=== PATIENT | female | born 1930 | race Caucasian/White ===

== ENCOUNTER 2017-06-20 08:27 | Emergency (ER) | payer MEDICARE, OTHER ==
[2017-06-20 08:47] VITALS: BP 210/73
--- NOTE | 2017-06-20 09:11 | EDM.PDOC ---
ED HPI GENERAL MEDICAL PROBLEM - General Chief Complaint: Cardiovascular Problem Stated Complaint: MEDICAL [facility] Time Seen by Provider: 06/20/17 08:57 Source of Information: Reports: Patient, RN Notes Reviewed History Limitations: Reports: No Limitations - History of Present Illness INITIAL COMMENTS - FREE TEXT/NARRATIVE: 87-year-old female presents emergency department day complaint of elevated blood pressure, she states she awoke this morning did not feel right checked her blood pressure and was elevated around 225 she felt dizzy and unsteady on her feet called the nurses line who recommended immediate transport to the emergency department, where she was brought in by EMS services. She states she did not take her blood pressure medications this morning she only uses metoprolol tartrate once a day was on hydrochlorothiazide but was taken off that medication 2 months ago for hallucinations - Related Data Allergies Allergy/AdvReac Type Severity Reaction Status Date / Time No Known Allergies Allergy Verified 06/20/17 08:38 Home Meds: Home Meds Levothyroxine 50 mcg PO ACBRK 08/13/13 [History] Lovastatin [Lovastatin] 20 mg PO DAILY 08/13/13 [History] Meclizine [Antivert] 12.5 mg PO BID 08/13/13 [History] Omeprazole [Omeprazole] 20 mg PO DAILY 08/13/13 [History] prednisoLONE Acetate [Prednisolone Acetate] 1 drop EYERT DAILY 08/13/13 [History ] Aspirin/Calcium Carbonate/Mag [Aspirin Buffered 325 mg Tab] 325 mg PO DAILY [History] Calcium Carbonate/Vitamin D3 [Calcium 600 + Vit D 200] 1 tab PO DAILY 06/06/15 [ History] Lutein 6 mg PO DAILY 06/06/15 [History] Metoprolol Tartrate [Lopressor] 25 mg PO DAILY 06/06/15 [History] Naproxen Sodium 1 tab PO BID PRN 06/06/15 [History] Nitroglycerin [Nitrostat] 0.4 mg PO ASDIRECTED PRN 06/06/15 [History] Psyllium [Metamucil] 1 cap PO DAILY 06/06/15 [History] Vitamin E 400 unit PO DAILY 06/06/15 [History] Niacin 250 mg PO DAILY 05/21/16 [History] Past Medical History HEENT History: Reports: Cataract, Glaucoma, Impaired Vision Cardiovascular History: Reports: High Cholesterol, Hypertension Other Cardiovascular History: "heart palpitations" Gastrointestinal History: Reports: Chronic Constipation, GERD, Hemorrhoids 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: Musculoskeletal History: Reports: Gout, Osteoarthritis Neurological History: Reports: Headaches, Chronic, TIA Psychiatric History: Reports: Anxiety, Depression Endocrine/Metabolic History: Reports: Hypothyroidism Other Endocrine/Metabolic History: thyroid Hematologic History: Reports: Blood Transfusion(s) Oncologic (Cancer) History: Reports: Cervix Dermatologic History: Reports: Other (See Below) Other Dermatologic History: "dry, itching patch to chest" - Infectious Disease History Infectious Disease History: Reports: Chicken Pox, Measles - Past Surgical History Head Surgeries/Procedures: Reports: Shunt HEENT Surgical History: Reports: Cataract Surgery, Eye Surgery, Tonsillectomy Other HEENT Surgeries/Procedures: stents in eyes GI Surgical History: Reports: Appendectomy, Colonoscopy Female Surgical History: Reports: D&C, Hysterectomy Other Female Surgeries/Procedures: bladder surgery Endocrine Surgical History: Reports: None Social & Family History - Family History Family Medical History: Noncontributory - Tobacco Use Smoking Status *Q: Never Smoker Second Hand Smoke Exposure: No - Caffeine Use Caffeine Use: Reports: None - Alcohol Use Days Per Week of Alcohol Use: 0 - Recreational Drug Use Recreational Drug Use: No Drug Use in Last 12 Months: No ED ROS GENERAL - Review of Systems Review Of Systems: See Below Constitutional: Reports: No Symptoms HEENT: Reports: No Symptoms Respiratory: Reports: No Symptoms Cardiovascular: Reports: No Symptoms GI/Abdominal: Reports: No Symptoms : Reports: No Symptoms (Saw your so sure pressure call 911 but he known in the ambulance a certain go emergency department but wanted to go to the clinic that showed walk in in appointment that survey) Musculoskeletal: Reports: No Symptoms Skin: Reports: No Symptoms Neurological: Reports: Headache ED EXAM, GENERAL - Physical Exam Exam: See Below Free Text/Narrative:: General: Female, not in any distress, alert and oriented x3 HEENT: head is atraumatic normocephalic, eyes pupils equal round reactive to light, sclera clear no conjunctivitis appreciated. Ears tympanic membranes clear and spring landmarks and light reflex are present bilaterally canals are clear. Nose no septal deviation, nares are clear, no blood present. Mouth mucosa is moist and pink no erythema or exudate noted in soft palate, tongue is midline uvula is midline, dentition is intact. Neck: Supple no thyromegaly no tracheal deviation. Nodes: Cervical nodes subclavicular nodes nontender no palpable lymphadenopathy noted. Lungs: clear to auscultation bilaterally with symmetrical respirations, no adventitious noise appreciated. CV: Regular rate and rhythm S1 and S2 appreciated no murmurs rubs or gallops noted. Abdomen: Soft, nontender, no palpable masses or organomegaly appreciated, no distention no guarding bowel sounds are present, who. Neuro: Cranial nerves II through XII grossly intact Skin: Warm and dry, intact Extremities: No lower extremity edema appreciated, . Course - Vital Signs Last Recorded V/S: Last Vital Signs Temp 98.6 F 06/20/17 08:34 Pulse 58 L 06/20/17 08:34 Resp 18 06/20/17 08:34 BP 210/73 H 06/20/17 08:34 Pulse Ox 96 06/20/17 08:34 - Orders/Labs/Meds Orders: Active Orders 24 hr Category Date Time Status Cardiac Monitoring [RC] .As Directed Care 06/20/17 09:08 Active Labs: Laboratory Tests 06/20/17 06/20/17 Range/Units 09:08 09:08 WBC 5.9 (4.5-11.0) K/uL RBC 4.31 (3.30-5.50) M/uL Hgb 13.0 (12.0-15.0) g/dL Hct 40.6 (36.0-48.0) % MCV 94 (80-98) fL MCH 30 (27-31) pg MCHC 32 (32-36) % Plt Count 215 (150-400) K/uL Neut % (Auto) 48 (36-66) % Lymph % (Auto) 35 (24-44) % Roberts % (Auto) 14 H (2-6) % Eos % (Auto) 3 (2-4) % Baso % (Auto) 1 (0-1) % Sodium 141 (140-148) mmol/L Potassium 4.7 (3.6-5.2) mmol/L Chloride 105 (100-108) mmol/L Carbon Dioxide 31 (21-32) mmol/L Anion Gap 4.7 L (5.0-14.0) mmol/L BUN 19 H (7-18) mg/dL Creatinine 1.1 H (0.6-1.0) mg/dL Est Cr Clr Drug Dosing 34.38 mL/min Estimated GFR (MDRD) 47 L (>60) Glucose 109 H (74-106) mg/dL Calcium 9.4 (8.5-10.1) mg/dL Total Bilirubin 0.5 (0.2-1.0) mg/dL AST 31 (15-37) U/L ALT 29 (12-78) U/L Alkaline Phosphatase 61 (46-116) U/L Total Protein 6.7 (6.4-8.2) g/dL Albumin 3.4 (3.4-5.0) g/dL Globulin 3.3 (2.3-3.5) g/dL Albumin/Globulin Ratio 1.0 L (1.2-2.2) Departure - Departure Time of Disposition: 10:39 Disposition: Home, Self-Care 01 Condition: Good Clinical Impression: Hypertensive urgency Referrals: Pita Kendall PA [Primary Care Provider] - Forms: ED Department Discharge Additional Instructions: Recommend taking the Toprol tartrate 25 mg by mouth 2 times a day follow-up with your primary care in the next 3-5 days for reevaluation - My Orders Last 24 Hours: My Active Orders 06/20/17 09:08 Cardiac Monitoring [RC] .As Directed - Assessment/Plan Last 24 Hours: My Active Orders 06/20/17 09:08 Cardiac Monitoring [RC] .As Directed Plan: Assessment Acuity = acute Site and laterality = hypertensive urgency Etiology = essential hypertension not taking blood pressure medications Manifestations = none Location of injury = Home Lab values = CBC unremarkable creatinine elevated at 1.1 consistent with chronic renal failure stage GIII a Plan Restarted her home medications of metoprolol tartrate 25 mg once a day she notes that her blood pressure is usually higher in the evening as soon as her blood pressure was given to her her blood pressure did come down systolic 157 recommend increasing the metoprolol titrate to 25 mg by mouth twice a day follow -up with primary care in 3-5 days for reevaluation Patient was in agreement with the plan all questions were answered, they were instructed to return to the emergency department or call for worsening symptoms. This note was dictated using [employer] voice recognition software please call with any questions.
== END 2017-06-20 10:55 | disposition home or self-care (01) ==
LOC: JP.ED 08:27
DX: I16.0 Hypertensive urgency (principal); I10 Essential (primary) hypertension; E78.00 Pure hypercholesterolemia, unspecified; Z79.899 Other long term (current) drug therapy; Z79.82 Long term (current) use of aspirin
CPT/HCPCS: 36415; 80053; 85025; 99284

== ENCOUNTER 2018-03-12 06:15 | Emergency (ER) | payer MEDICARE, OTHER ==
[2018-03-12] MEDS ORDERED: fentaNYL 100 MCG/2 ML SDV IM ONE (07:07)
[2018-03-12] MEDS ORDERED: Metoprolol Tartrate 25 MG Tab PO ONE (07:17)
--- NOTE | 2018-03-12 07:44 | EDM.PDOC ---
ED HPI GENERAL MEDICAL PROBLEM - General Chief Complaint: Head Injury Stated Complaint: FELL Time Seen by Provider: 03/12/18 07:13 Source of Information: Reports: Patient, RN Notes Reviewed History Limitations: Reports: No Limitations - History of Present Illness INITIAL COMMENTS - FREE TEXT/NARRATIVE: 87-year-old female presents emergency department today via EMS following a fall in the custodial. She had fallen landed on the back of her head she has a large bruise on the back of her scalp no other functional complaints. She does admit she has difficulty in the morning with being dizzy secondary to her blood pressure problems, she states she did not use her walker this morning and decided to go without it and lost her balance and fell backwards. At this time she is complaining of headache, no neck pain no shortness of breath no other focal injuries head trauma Pain Score (Numeric/FACES): 10 - Related Data Allergies Allergy/AdvReac Type Severity Reaction Status Date / Time No Known Allergies Allergy Verified 03/12/18 06:16 Home Meds: Home Meds Levothyroxine 50 mcg PO ACBRK 08/13/13 [History] Lovastatin 20 mg PO DAILY 08/13/13 [History] Meclizine [Antivert] 12.5 mg PO BID 08/13/13 [History] Omeprazole 20 mg PO DAILY 08/13/13 [History] prednisoLONE Acetate [Prednisolone Acetate] 1 drop EYERT DAILY 08/13/13 [History ] Aspirin/Calcium Carbonate/Mag [Aspirin Buffered 325 mg Tab] 325 mg PO DAILY PRN 06/06/15 [History] Calcium Carbonate/Vitamin D3 [Calcium 600 + Vit D 200] 1 tab PO DAILY 06/06/15 [ History] Metoprolol Tartrate [Lopressor] 25 mg PO DAILY 06/06/15 [History] Naproxen Sodium 220 mg PO BID PRN 06/06/15 [History] Nitroglycerin [Nitrostat] 0.4 mg PO ASDIRECTED PRN 06/06/15 [History] Psyllium [Metamucil] 1 cap PO DAILY PRN 06/06/15 [History] Vitamin E 400 unit PO DAILY 06/06/15 [History] Niacin 250 mg PO DAILY 05/21/16 [History] Past Medical History HEENT History: Reports: Cataract, Glaucoma, Impaired Vision Cardiovascular History: Reports: High Cholesterol, Hypertension, Other (See Below) Other Cardiovascular History: "heart palpitations" Gastrointestinal History: Reports: Chronic Constipation, GERD, Hemorrhoids 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: Musculoskeletal History: Reports: Osteoarthritis Neurological History: Reports: Headaches, Chronic, TIA Psychiatric History: Reports: Anxiety, Depression Endocrine/Metabolic History: Reports: Hypothyroidism, Other (See Below) Other Endocrine/Metabolic History: thyroid Hematologic History: Reports: Blood Transfusion(s) Oncologic (Cancer) History: Reports: Cervix Dermatologic History: Reports: Other (See Below) Other Dermatologic History: "dry, itching patch to chest" - Infectious Disease History Infectious Disease History: Reports: Chicken Pox, Measles, Mumps, Shingles - Past Surgical History Head Surgeries/Procedures: Reports: Shunt HEENT Surgical History: Reports: Cataract Surgery, Eye Surgery, Tonsillectomy Other HEENT Surgeries/Procedures: stents in eyes GI Surgical History: Reports: Appendectomy, Colonoscopy Female Surgical History: Reports: D&C, Hysterectomy, Other (See Below) Other Female Surgeries/Procedures: bladder surgery Social & Family History - Family History Family Medical History: Noncontributory - Tobacco Use Smoking Status *Q: Never Smoker - Caffeine Use Caffeine Use: Reports: None - Recreational Drug Use Recreational Drug Use: No ED ROS GENERAL - Review of Systems Review Of Systems: See Below Constitutional: Reports: No Symptoms HEENT: Reports: No Symptoms Respiratory: Reports: No Symptoms Cardiovascular: Reports: No Symptoms GI/Abdominal: Reports: No Symptoms Musculoskeletal: Reports: No Symptoms Skin: Reports: Wound Neurological: Reports: Headache ED EXAM, HEAD INJURY - Physical Exam Exam: See Below Exam Limited By: No Limitations General Appearance: Alert, WD/WN, No Apparent Distress Head: Normocephalic, Scalp Hematoma, Scalp Tenderness Nexus Criteria: No: Posterior, Midline Cervical Tenderness, Evidence of Intoxication, Altered Level of Consciousness, Focal Neurological Deficit, Painful Distraction Injuries Eyes: Bilateral Eye: Normal Inspection Neck: Non-Tender, Full Range of Motion, Normal Alignment, Normal Inspection Respiratory: No Respiratory Distress, Lungs Clear, Normal Breath Sounds, No Accessory Muscle Use Cardiovascular: Regular Rate, Rhythm, No Murmur Back Exam: Normal Inspection, Full Range of Motion Neurologic: No Motor/Sensory Deficits, Alert, Normal Mood/Affect, Oriented x 3 Course - Vital Signs Last Recorded V/S: Last Vital Signs Temp 96.9 F 03/12/18 06:22 Pulse 60 03/12/18 08:08 Resp 16 03/12/18 08:08 BP 175/43 H 03/12/18 08:08 Pulse Ox 93 L 03/12/18 08:08 - Orders/Labs/Meds Orders: Active Orders 24 hr Category Date Time Status Head wo Cont [CT] Stat Exams 03/12/18 06:44 Taken Meds: Medications Discontinued Medications Generic Name Dose Route Start Last Admin Trade Name Juan PRN Reason Stop Dose Admin Fentanyl 50 mcg 03/12/18 07:07 03/12/18 07:18 Sublimaze IM 03/12/18 07:08 50 mcg ONETIME ONE Administration Metoprolol Tartrate 25 mg 03/12/18 07:17 03/12/18 07:20 Lopressor PO 03/12/18 07:18 25 mg ONETIME ONE Administration Departure - Departure Time of Disposition: 08:40 Disposition: Home, Self-Care 01 Condition: Fair Clinical Impression: Head injury Qualifiers: Encounter type: initial encounter Qualified Code(s): S09.90XA - Unspecified injury of head, initial encounter Scalp hematoma Qualifiers: Encounter type: initial encounter Qualified Code(s): S00.03XA - Contusion of scalp, initial encounter - Discharge Information Referrals: PCP,None [Primary Care Provider] - Forms: ED Department Discharge Additional Instructions: Please followup with your primary care provider in 3-5 days if not better, please call return to the emergency department with worsening of symptoms. - Assessment/Plan Plan: Assessment Acuity = acute Site and laterality = head injury risk for concussion syndrome Etiology = secondary to a fall Manifestations = occipital scalp hematoma Location of injury = Home Lab values = CT scan of the head shows no acute process Plan Plan is discharge home, follow-up with primary care 3-5 days if not better This note was dictated using [employer] voice recognition software please call with any questions on syntax or grammar.
[2018-03-12 08:11] VITALS: BP 175/43
== END 2018-03-12 09:00 | disposition home or self-care (01) ==
LOC: JP.ED 06:15
DX: S09.90XA Unspecified injury of head, initial encounter (principal); S00.03XA Contusion of scalp, initial encounter; W19.XXXA Unspecified fall, initial encounter; Y92.129 Unspecified place in nursing home as the place of occurrence of the external cause
CPT/HCPCS: 70450; 96372; 99284; A9270; J3010

== ENCOUNTER 2018-03-29 22:14 | Inpatient (IN) | payer MEDICARE, OTHER ==
[2018-03-29] MEDS ORDERED: fentaNYL 100 MCG/2 ML SDV IM ONE (22:54)
--- NOTE | 2018-03-29 23:09 | EDM.PDOC ---
ED HPI GENERAL MEDICAL PROBLEM - General Chief Complaint: Back Pain or Injury Stated Complaint: BACK PAIN Time Seen by Provider: 03/29/18 22:30 Source of Information: Reports: Patient, EMS History Limitations: Reports: No Limitations - History of Present Illness INITIAL COMMENTS - FREE TEXT/NARRATIVE: 88-year-old female brought in by ambulance because of worsening severe lower back pain, inability to get around her apartment. She fell 2 weeks ago, hitting the back of her head which was evaluated in the emergency room. She still has a hematoma on the posterior scalp. Several days later she was having significant but pain and sacral pain so was seen in the clinic after a few visits to the chiropractor who thought she should have "x-rays". She did have x-rays in the clinic which showed significant osteoarthritis but no acute fracture. She continues to have discomfort, and 2 days ago she missed a step, did not fall but yissel her back and now she is unable to walk. She's been crawling around her apartment on her hands and knees. No dysuria or incontinence. Onset: Unknown/Unsure Location: Reports: Back, Pelvis Severity: Severe Worsens with: Reports: Other (Increased pain with weightbearing), Movement Associated Symptoms: Reports: Other (Some radicular like pain extending down the back of both legs) low back bilat Pain Score (Numeric/FACES): 10 - Related Data Allergies Allergy/AdvReac Type Severity Reaction Status Date / Time No Known Allergies Allergy Verified 03/29/18 22:23 Home Meds: Home Meds Levothyroxine 50 mcg PO ACBRK 08/13/13 [History] Lovastatin 20 mg PO DAILY 08/13/13 [History] Meclizine [Antivert] 12.5 mg PO DAILY 08/13/13 [History] Omeprazole 20 mg PO DAILY 08/13/13 [History] prednisoLONE Acetate [Prednisolone Acetate] 1 drop EYERT DAILY 08/13/13 [History ] Naproxen Sodium 220 mg PO DAILY 06/06/15 [History] Nitroglycerin [Nitrostat] 0.4 mg PO ASDIRECTED PRN 06/06/15 [History] Psyllium [Metamucil] 1 cap PO DAILY PRN 06/06/15 [History] Vitamin E 400 unit PO DAILY 06/06/15 [History] Niacin 250 mg PO DAILY 05/21/16 [History] Aspirin [Ecotrin] 325 mg PO DAILY 03/29/18 [History] Furosemide 1 tab PO DAILY 03/29/18 [History] Sertraline HCl 1 tab PO DAILY 03/29/18 [History] Past Medical History HEENT History: Reports: Cataract, Glaucoma, Impaired Vision Cardiovascular History: Reports: High Cholesterol, Hypertension, Other (See Below) Other Cardiovascular History: "heart palpitations" Gastrointestinal History: Reports: Chronic Constipation, GERD, Hemorrhoids Genitourinary History: Reports: Chronic Renal Insuffiency, Other (See Below) Other Genitourinary History: stage 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: Musculoskeletal History: Reports: Back Pain, Chronic, Osteoarthritis, Osteoporosis Neurological History: Reports: Headaches, Chronic, TIA, Other (See Below) Other Neuro History: cognitive impairment Psychiatric History: Reports: Anxiety, Depression Endocrine/Metabolic History: Reports: Hypothyroidism, Other (See Below) Other Endocrine/Metabolic History: thyroid Hematologic History: Reports: Blood Transfusion(s) Oncologic (Cancer) History: Reports: Cervix Dermatologic History: Reports: Other (See Below) Other Dermatologic History: "dry, itching patch to chest" - Infectious Disease History Infectious Disease History: Reports: Chicken Pox, Measles, Mumps, Shingles - Past Surgical History Head Surgeries/Procedures: Reports: Shunt HEENT Surgical History: Reports: Cataract Surgery, Eye Surgery, Tonsillectomy, Other (See Below) Other HEENT Surgeries/Procedures: stents in eyes, corneal transport GI Surgical History: Reports: Appendectomy, Colonoscopy Female Surgical History: Reports: D&C, Hysterectomy, Other (See Below) Other Female Surgeries/Procedures: bladder surgery Social & Family History - Family History Family Medical History: Noncontributory - Tobacco Use Smoking Status *Q: Never Smoker - Caffeine Use Caffeine Use: Reports: None - Recreational Drug Use Recreational Drug Use: No ED ROS GENERAL - Review of Systems Review Of Systems: See Below Constitutional: Denies: Fever, Chills HEENT: Denies: Vision Change Respiratory: Denies: Shortness of Breath Cardiovascular: Denies: Chest Pain GI/Abdominal: Denies: Nausea, Vomiting : Reports: No Symptoms Skin: Reports: Other (Still a significant sore hematoma on the occiput of the scalp) Neurological: Reports: Confusion (Chronic baseline). Denies: Headache Psychiatric: Reports: No Symptoms ED EXAM,LOWER BACK PAIN/INJURY - Physical Exam Exam: See Below Exam Limited By: No Limitations General Appearance: Alert, Mild Distress (Looks fairly uncomfortable), Other ( Appears very uncomfortable, shifting frequently because of discomfort in the low back and pelvis) Head: Other (Tender significant hematoma on the occipital scalp) Respiratory/Chest: No Respiratory Distress, Lungs Clear Cardiovascular: Regular Rate, Rhythm Back Exam: Other (Palpation tenderness is mostly over the sacrum and extreme lower lumbar area, some increased pain with rotation of the hips and flexion of the hips) Neurological: Alert, No Motor/Sensory Deficits (No weakness of the lower extremities or asymmetry other than what is limited by pain) Psychiatric: Normal Affect, Normal Mood Skin Exam: Warm, Dry Course - Vital Signs Last Recorded V/S: Last Vital Signs Temp 97.3 F 03/30/18 01:17 Pulse 86 03/30/18 01:17 Resp 18 03/30/18 01:17 BP 193/74 H 03/30/18 01:17 Pulse Ox 97 03/30/18 01:17 - Orders/Labs/Meds Orders: Active Orders 24 hr Category Date Time Status Pelvis wo Cont [CT] Stat Exams 03/29/18 23:02 Taken Medication Orders Hydrocodone Bitart/Acetaminophen ([place] 325-5 Mg) 1 - 2 tab PO Q6H PRN PRN Reason: Pain Last Admin: 03/30/18 01:50 Dose: 1 tab Aspirin (Ecotrin) 325 mg PO DAILY JENNIFER Fentanyl (Sublimaze) 25 mcg IVPUSH Q2H PRN PRN Reason: Pain (severe 7-10) Last Admin: 03/30/18 01:19 Dose: 25 mcg Melatonin (Melatonin) 9 mg PO BEDTIME PRN PRN Reason: Insomnia Last Admin: 03/30/18 01:50 Dose: 9 mg Sodium Chloride (Saline Flush) 10 ml FLUSH ASDIRECTED PRN PRN Reason: Keep Vein Open Meds: Medications Generic Name Dose Route Start Last Admin Trade Name Freq PRN Reason Stop Dose Admin Hydrocodone Bitart/Acetaminophen 1 - 2 tab 03/30/18 01:27 03/30/18 01:50 [place] 325-5 Mg PO 1 tab Q6H PRN Administration Pain Aspirin 325 mg 03/30/18 09:00 Ecotrin PO DAILY JENNIFER Fentanyl 25 mcg 03/30/18 00:24 03/30/18 01:19 Sublimaze IVPUSH 25 mcg Q2H PRN Administration Pain (severe 7-10) Melatonin 9 mg 03/30/18 01:26 03/30/18 01:50 Melatonin PO 9 mg BEDTIME PRN Administration Insomnia Sodium Chloride 10 ml 03/30/18 00:35 Saline Flush FLUSH ASDIRECTED PRN Keep Vein Open Discontinued Medications Generic Name Dose Route Start Last Admin Trade Name Juan PRN Reason Stop Dose Admin Fentanyl 50 mcg 03/29/18 22:54 03/29/18 23:03 Sublimaze IM 03/29/18 22:55 50 mcg ONETIME ONE Administration - Re-Assessments/Exams Free Text/Narrative Re-Assessment/Exam: 03/29/18 23:08 Patient was given 50 g of fentanyl IM and a CT of the pelvis was obtained to rule out any occult fractures. Patient is afraid to go home, she does not feel she can care for herself. 03/30/18 00:04 Pain medication did help, CT scan was done and confirms several nondisplaced fractures of the sacrum. I discussed her condition with Dr. Dave, he agreed to accept her for admission for pain control and referral for plans on rehabilitation. Departure - Departure Time of Disposition: 00:48 Disposition: Admitted As Inpatient 65 Condition: Fair Clinical Impression: Sacral fracture, closed Qualifiers: Encounter type: initial encounter Zone of sacrum fracture: unspecified portion of sacrum Qualified Code(s): S32.10XA - Unspecified fracture of sacrum, initial encounter for closed fracture - Discharge Information - My Orders Last 24 Hours: My Active Orders 03/29/18 23:02 Pelvis wo Cont [CT] Stat - Assessment/Plan Last 24 Hours: My Active Orders 03/29/18 23:02 Pelvis wo Cont [CT] Stat
[2018-03-30] MEDS ORDERED: Sodium Chloride 0.9% 10 ML Syringe FLUSH PRN (00:35)
[2018-03-30] MEDS: fentaNYL 100 MCG/2 ML SDV IVPUSH PRN ×3 (01:19→12:01)
[2018-03-30] MEDS: Acetaminophen/HYDROcodone 325-5 MG Tab PO PRN ×3 (01:50→21:47)
[2018-03-30] MEDS: Melatonin 3 MG Tab PO PRN ×2 (01:50→21:46)
[2018-03-30] MEDS ORDERED: Nitroglycerin 0.4 MG Tab.SL SL PRN (06:48)
--- NOTE | 2018-03-30 08:00 | HP ---
CHIEF COMPLAINT: Tailbone pain. HISTORY OF PRESENT ILLNESS: An 88-year-old who fell 2 weeks ago hitting the back of her head which she was noted to have hematoma on the posterior scalp in the emergency room at that time. Several days later, she was having pain in her sacrum and pelvis. She was evaluated by a chiropractor, thought she should have x-rays and had x-rays in the clinic, which showed arthritis, but no fracture. She continued to have discomfort. Two days ago missed the step and charged her back, and since then, she has had hard time walking, basically crawling at her apartment on her and and knees. She does complain of some constipation and small bowel movement a couple days ago. She does have some pain down into her legs. I was asked to admit the patient for further evaluation and treatment for pain control. PAST MEDICAL AND SURGICAL HISTORY: She has had tonsillectomy, cataract surgery, eye surgery, stents in both eyes and corneal transplant, appendectomy, D and C, hysterectomy, bladder surgery. History of hyperlipidemia, essential hypertension, palpitations, chronic constipation, gastroesophageal reflux disease and hemorrhoids. She has had chronic renal insufficiency, osteoarthritis, osteoporosis, TIA, anxiety with depression, hypothyroidism, and cervical cancer. MEDICATIONS: Levothyroxine 50 mcg daily, lovastatin 20 mg daily, Antivert p.r.n., omeprazole 20 mg daily, prednisone eye drops, naproxen 220 mg daily, natural psyllium one cap daily p.r.n., vitamin E, niacin, aspirin 325 mg daily, furosemide, and sertraline daily. SOCIAL HISTORY: She has never smoked. FAMILY HISTORY: Noncontributory. ALLERGIES: NONE. REVIEW OF SYSTEMS: Denies headaches, vision changes, upper respiratory symptoms. No chest pain. States her heart has raced a little bit. No shortness of breath. She denies any nausea or vomiting. Has had some problems with constipation. Denies any incontinence of bowel or bladder. No dysuria. No swelling in her legs, but does have discomfort in both legs. She does have the pain in her lower back and sacrum. OBJECTIVE: VITAL SIGNS: Weight 58.9 kg. Temperature 37.3, pulse 85, blood pressure initially 191/66, respiratory rate 18, and O2 saturation 96% on room air. Now, her blood pressure is 143/48. HEENT: She does still have slight hematoma on the back of her scalp. Pharynx is clear. NECK: Supple. No adenopathy. BACK: Rest of the back is nontender, but does have pain into her sacral and hips. LUNGS: Clear. HEART: Regular. I did hear a slight systolic murmur, which she denies a history of in the past. ABDOMEN: Soft. She had some mild diffuse discomfort, she thinks from her constipation. EXTREMITIES: No pain reproduced with palpation of her legs. There is no swelling. SKIN: Negative other than above. NEURO: Cranial nerves 2 through 12 grossly intact. IMAGING STUDIES: CT scan showed several nondisplaced fractures through her sacrum and also showed arthritis. ASSESSMENT: 1. Sacral fractures. We will admit her for pain control. The patient started on IV pain medication, which did help in the ER, but we will try some oral pain medication to see if it will provide longer pain relief. 2. Constipation. We will try some milk of magnesia, which she normally does not use. 3. Hypertension. Blood pressure initially high when she came in, but has come down. 4. Heart murmur, etiology uncertain, but she was not aware of it, does not seem to be causing clinical symptoms at this point. Bhavesh Dave MD /[id number]
[2018-03-30] MEDS: Pantoprazole 40 MG Tab.CR PO SCH (08:19)
[2018-03-30] MEDS: Levothyroxine 50 MCG Tab PO SCH (08:19)
[2018-03-30] MEDS: Sertraline 25 MG Tab PO SCH (08:19)
[2018-03-30] MEDS: Aspirin 325 MG Tab.EC PO SCH (08:19)
[2018-03-30] MEDS: Meclizine 25 MG Tab PO SCH (08:19)
[2018-03-30] MEDS: prednisoLONE Acetate 1% Ophth Susp 5 ML Bottle EYERT SCH (08:20)
[2018-03-30] MEDS ORDERED: Psyllium Husk Powder Sugar Free 3.4 GM Packet PO PRN (09:00)
[2018-03-30] MEDS ORDERED: Magnesium Hydroxide 400 MG/5 ML Susp 30 ML Cup PO ONE (09:00)
[2018-03-30] MEDS ORDERED: Aspirin 325 MG Tab.EC PO SCH (09:00)
[2018-03-30] MEDS ORDERED: Furosemide 20 MG Tab PO SCH (09:00)
--- NOTE | 2018-03-30 17:49 | PCM.PN ---
- General Info Date of Service: 03/30/18 Subjective Update: Ms. Walsh is an 88-year-old woman who was admitted through the emergency department by Dr. Dave earlier today with severe lower back and pelvic pain secondary to sacral fractures. She fell approximately 2 weeks ago and has had some pain since then but was able to ambulate. Few days ago twisted her back and since then has had severe pain in her very lower back. CT scan was obtained in the emergency department it did document sacral fractures. She has had some ongoing difficulty with constipation and was given milk of magnesia after admission which did result in a bowel movement. - Review of Systems General: Reports: Weakness. Denies: Fever, Chills Pulmonary: Reports: No Symptoms Cardiovascular: Reports: No Symptoms Gastrointestinal: Reports: No Symptoms Musculoskeletal: Reports: Back Pain - Patient Data Vitals - Most Recent: Last Vital Signs Temp 97.2 F 03/30/18 15:10 Pulse 66 03/30/18 15:10 Resp 12 03/30/18 15:10 BP 160/58 H 03/30/18 15:10 Pulse Ox 96 03/30/18 15:10 Orthostatic Blood Pressure [ 90/47 Standing] Orthostatic Blood Pressure [ 127/71 Sitting] Weight - Most Recent: 132 lb 14.385 oz I&O - Last 24 Hours: Intake & Output 03/30/18 03/30/18 03/30/18 06:59 14:59 22:59 Output Total 1050 Balance -1050 Med Orders - Current: Current Medications Hydrocodone Bitart/Acetaminophen ([place] 325-5 Mg) 1 - 2 tab PO Q6H PRN PRN Reason: Pain Last Admin: 03/30/18 07:34 Dose: 2 tab Aspirin (Ecotrin) 325 mg PO DAILY [facility] Last Admin: 03/30/18 08:19 Dose: 325 mg Fentanyl (Sublimaze) 25 mcg IVPUSH Q2H PRN PRN Reason: Pain (severe 7-10) Last Admin: 03/30/18 12:01 Dose: 25 mcg Levothyroxine Sodium (Synthroid) 50 mcg PO ACBRK [facility] Last Admin: 03/30/18 08:19 Dose: 50 mcg Lovastatin (Mevacor) 20 mg PO DAILY [facility] Last Admin: 03/30/18 08:19 Dose: 20 mg Meclizine HCl (Antivert) 12.5 mg PO DAILY [facility] Last Admin: 03/30/18 08:19 Dose: 12.5 mg Melatonin (Melatonin) 9 mg PO BEDTIME PRN PRN Reason: Insomnia Last Admin: 03/30/18 01:50 Dose: 9 mg Nitroglycerin (Nitrostat) 0.4 mg SL ASDIRECTED PRN PRN Reason: Chest Pain Pantoprazole Sodium (Protonix) 40 mg PO ACBREAKFAST [facility] Last Admin: 03/30/18 08:19 Dose: 40 mg Prednisolone Acetate (Pred Forte 1% Ophth Susp) 0 ml EYERT DAILY [facility] Last Admin: 03/30/18 08:20 Dose: 1 drop Psyllium Husk (Metamucil Sugar Free) 1 packet PO DAILY PRN PRN Reason: CONSTIPATION Sertraline HCl (Zoloft) 25 mg PO DAILY [facility] Last Admin: 03/30/18 08:19 Dose: 25 mg Sodium Chloride (Saline Flush) 10 ml FLUSH ASDIRECTED PRN PRN Reason: Keep Vein Open Discontinued Medications Fentanyl (Sublimaze) 50 mcg IM ONETIME ONE Stop: 03/29/18 22:55 Last Admin: 03/29/18 23:03 Dose: 50 mcg Furosemide (Lasix) 20 mg PO DAILY [facility] Last Admin: 03/30/18 08:19 Dose: 20 mg Magnesium Hydroxide (Milk Of Magnesia) 30 ml PO ONETIME ONE Stop: 03/30/18 09:01 Last Admin: 03/30/18 08:19 Dose: 30 ml - Exam Quality Assessment: DVT Prophylaxis General: Alert, Oriented, Cooperative, Moderate Distress Lungs: Clear to Auscultation, Normal Respiratory Effort Cardiovascular: Regular Rate, Regular Rhythm, Murmurs GI/Abdominal Exam: Soft, Non-Tender, No Organomegaly, No Distention Extremities: Non-Tender, No Pedal Edema Skin: Warm, Dry, Intact - Problem List Review Problem List Initiated/Reviewed/Updated: Yes - Plan Plan:: ASSESSMENT AND PLAN SACRAL FRACTURES-cause of current severe lower back pain -Pain medication as needed CONSTIPATION-improved with current management MAINTENANCE ISSUES -DVT prophylaxis; SCUDs -GI prophylaxis; not indicated -Drummond catheter; not indicated -Nutrition; regular diet -Nicotine dependence; not required CODE STATUS-DNR/DNI ADMISSION STATUS-patient will be admitted to inpatient status, expect at least a 2 night hospital stay for evaluation and management of problems as outlined above. At the time of this admission I do not reasonably expected evaluation and management of this problem will require more than a 96 hour hospital stay. DISPOSITION-anticipate discharge to [facility] PRIMARY CARE PROVIDER-
[2018-03-31] MEDS: Levothyroxine 50 MCG Tab PO SCH (07:30)
[2018-03-31] MEDS: Pantoprazole 40 MG Tab.CR PO SCH (07:31)
[2018-03-31] MEDS: Acetaminophen/HYDROcodone 325-5 MG Tab PO PRN ×4 (07:31→21:45)
[2018-03-31] MEDS: Meclizine 25 MG Tab PO SCH (08:56)
[2018-03-31] MEDS: prednisoLONE Acetate 1% Ophth Susp 5 ML Bottle EYERT SCH (08:57)
[2018-03-31] MEDS: Aspirin 325 MG Tab.EC PO SCH (08:57)
[2018-03-31] MEDS: Sertraline 25 MG Tab PO SCH (08:58)
--- NOTE | 2018-03-31 15:09 | PCM.PN ---
- General Info Date of Service: 03/31/18 Subjective Update: Ms. Walsh continues to experience severe lower back and posterior pelvic pain related to her sacral fractures. Mobility modestly improved today and she has been able to sit up in the chair. - Review of Systems General: Denies: Fever, Chills Pulmonary: Reports: No Symptoms Cardiovascular: Reports: No Symptoms Gastrointestinal: Reports: No Symptoms - Patient Data Vitals - Most Recent: Last Vital Signs Temp 97.9 F 03/31/18 14:03 Pulse 74 03/31/18 14:03 Resp 18 03/31/18 14:03 BP 155/86 H 03/31/18 14:03 Pulse Ox 97 03/31/18 14:03 Orthostatic Blood Pressure [ 90/47 Standing] Orthostatic Blood Pressure [ 127/71 Sitting] Weight - Most Recent: 132 lb 14.385 oz I&O - Last 24 Hours: Intake & Output 03/31/18 03/31/18 03/31/18 06:59 14:59 22:59 Intake Total 836 Balance 836 Med Orders - Current: Current Medications Aspirin (Ecotrin) 325 mg PO DAILY [facility] Last Admin: 03/31/18 08:57 Dose: 325 mg Levothyroxine Sodium (Synthroid) 50 mcg PO ACBRK [facility] Last Admin: 03/31/18 07:30 Dose: 50 mcg Lovastatin (Mevacor) 20 mg PO DAILY [facility] Last Admin: 03/31/18 08:57 Dose: 20 mg Meclizine HCl (Antivert) 12.5 mg PO DAILY [facility] Last Admin: 03/31/18 08:56 Dose: 12.5 mg Melatonin (Melatonin) 9 mg PO BEDTIME PRN PRN Reason: Insomnia Last Admin: 03/30/18 21:46 Dose: 9 mg Nitroglycerin (Nitrostat) 0.4 mg SL ASDIRECTED PRN PRN Reason: Chest Pain Pantoprazole Sodium (Protonix) 40 mg PO ACBREAKFAST [facility] Last Admin: 03/31/18 07:31 Dose: 40 mg Prednisolone Acetate (Pred Forte 1% Ophth Susp) 0 ml EYERT DAILY [facility] Last Admin: 03/31/18 08:57 Dose: 1 drop Psyllium Husk (Metamucil Sugar Free) 1 packet PO DAILY PRN PRN Reason: CONSTIPATION Last Admin: 03/31/18 09:05 Dose: 1 packet Sertraline HCl (Zoloft) 25 mg PO DAILY [facility] Last Admin: 03/31/18 08:58 Dose: 25 mg Sodium Chloride (Saline Flush) 10 ml FLUSH ASDIRECTED PRN PRN Reason: Keep Vein Open Discontinued Medications Hydrocodone Bitart/Acetaminophen ([place] 325-5 Mg) 1 - 2 tab PO Q6H PRN PRN Reason: Pain Last Admin: 03/31/18 13:03 Dose: 2 tab Fentanyl (Sublimaze) 50 mcg IM ONETIME ONE Stop: 03/29/18 22:55 Last Admin: 03/29/18 23:03 Dose: 50 mcg Fentanyl (Sublimaze) 25 mcg IVPUSH Q2H PRN PRN Reason: Pain (severe 7-10) Last Admin: 03/30/18 12:01 Dose: 25 mcg Furosemide (Lasix) 20 mg PO DAILY [facility] Last Admin: 03/30/18 08:19 Dose: 20 mg Magnesium Hydroxide (Milk Of Magnesia) 30 ml PO ONETIME ONE Stop: 03/30/18 09:01 Last Admin: 03/30/18 08:19 Dose: 30 ml - Exam Quality Assessment: DVT Prophylaxis General: Alert, Oriented, Cooperative, Mild Distress Lungs: Clear to Auscultation, Normal Respiratory Effort Cardiovascular: Regular Rate, Regular Rhythm, No Murmurs GI/Abdominal Exam: Soft, Non-Tender, No Organomegaly, No Distention Extremities: Non-Tender, No Pedal Edema - Problem List Review Problem List Initiated/Reviewed/Updated: Yes - My Orders Last 24 Hours: My Active Orders 03/31/18 15:07 Acetaminophen/HYDROcodone [[place] 325-5 MG] 1 - 2 tab PO Q4H PRN - Plan Plan:: ASSESSMENT AND PLAN SACRAL FRACTURES-cause of current severe lower back pain -Pain medication as needed CONSTIPATION-improved with current management MAINTENANCE ISSUES -DVT prophylaxis; SCUDs -GI prophylaxis; not indicated -D[place] catheter; not indicated -Nutrition; regular diet -Nicotine dependence; not required CODE STATUS-DNR/DNI ADMISSION STATUS-patient will be admitted to inpatient status, expect at least a 2 night hospital stay for evaluation and management of problems as outlined above. At the time of this admission I do not reasonably expected evaluation and management of this problem will require more than a 96 hour hospital stay. DISPOSITION-anticipate discharge to [facility] PRIMARY CARE PROVIDER-
[2018-03-31] MEDS: Dorzolamide 2% Ophth Soln 10 ML Bottle EYELF SCH (20:16)
[2018-03-31] MEDS: Melatonin 3 MG Tab PO PRN (21:46)
[2018-04-01] MEDS: Acetaminophen/HYDROcodone 325-5 MG Tab PO PRN ×5 (01:51→22:03)
[2018-04-01] MEDS: Pantoprazole 40 MG Tab.CR PO SCH (07:57)
[2018-04-01] MEDS: Levothyroxine 50 MCG Tab PO SCH (07:57)
[2018-04-01] MEDS: Dorzolamide 2% Ophth Soln 10 ML Bottle EYELF SCH ×2 (09:33→22:04)
[2018-04-01] MEDS: prednisoLONE Acetate 1% Ophth Susp 5 ML Bottle EYERT SCH (09:34)
[2018-04-01] MEDS: Aspirin 325 MG Tab.EC PO SCH (09:35)
[2018-04-01] MEDS: Meclizine 25 MG Tab PO SCH (09:35)
[2018-04-01] MEDS: Sertraline 25 MG Tab PO SCH (09:37)
[2018-04-01] MEDS ORDERED: Psyllium Husk Powder Sugar Free 5.85 GM Packet PO PRN (15:15)
--- NOTE | 2018-04-01 17:36 | PCM.PN ---
- General Info Date of Service: 04/01/18 Subjective Update: Ms. Walsh is noted slow improvement in the last 24 hours, continues to have significant pain with activity but has been able to be up in the chair and walking short distances. In medication seem to be working fairly well when she does need to take them. - Review of Systems General: Denies: Fever, Chills Pulmonary: Reports: No Symptoms Cardiovascular: Reports: No Symptoms Gastrointestinal: Reports: No Symptoms Musculoskeletal: Reports: Back Pain - Patient Data Vitals - Most Recent: Last Vital Signs Temp 97.8 F 04/01/18 15:00 Pulse 75 04/01/18 15:00 Resp 18 04/01/18 15:00 BP 105/53 L 04/01/18 15:00 Pulse Ox 99 04/01/18 15:00 Orthostatic Blood Pressure [ 90/47 Standing] Orthostatic Blood Pressure [ 127/71 Sitting] Weight - Most Recent: 132 lb 14.385 oz I&O - Last 24 Hours: Intake & Output 04/01/18 04/01/18 04/01/18 06:59 14:59 22:59 Intake Total 240 900 Output Total 200 400 300 Balance -200 -160 600 Med Orders - Current: Current Medications Hydrocodone Bitart/Acetaminophen ([place] 325-5 Mg) 1 - 2 tab PO Q4H PRN PRN Reason: Pain Last Admin: 04/01/18 15:15 Dose: 2 tab Aspirin (Ecotrin) 325 mg PO DAILY [facility] Last Admin: 04/01/18 09:35 Dose: 325 mg Dorzolamide HCl (Trusopt 2% Ophth Soln) 0 ml EYELF BID [facility] Last Admin: 04/01/18 09:33 Dose: 1 drop Levothyroxine Sodium (Synthroid) 50 mcg PO ACBRK [facility] Last Admin: 04/01/18 07:57 Dose: 50 mcg Lovastatin (Mevacor) 20 mg PO DAILY [facility] Last Admin: 04/01/18 09:35 Dose: 20 mg Meclizine HCl (Antivert) 12.5 mg PO DAILY [facility] Last Admin: 04/01/18 09:35 Dose: 12.5 mg Melatonin (Melatonin) 9 mg PO BEDTIME PRN PRN Reason: Insomnia Last Admin: 03/31/18 21:46 Dose: 9 mg Nitroglycerin (Nitrostat) 0.4 mg SL ASDIRECTED PRN PRN Reason: Chest Pain Pantoprazole Sodium (Protonix) 40 mg PO ACBREAKFAST [facility] Last Admin: 04/01/18 07:57 Dose: 40 mg Prednisolone Acetate (Pred Forte 1% Ophth Susp) 0 ml EYERT DAILY [facility] Last Admin: 04/01/18 09:34 Dose: 1 drop Psyllium Husk (Metamucil Sugar Free) 1 pkt PO DAILY PRN PRN Reason: CONSTIPATION Last Admin: 04/01/18 15:26 Dose: 1 pkt Sertraline HCl (Zoloft) 25 mg PO DAILY [facility] Last Admin: 04/01/18 09:37 Dose: 25 mg Sodium Chloride (Saline Flush) 10 ml FLUSH ASDIRECTED PRN PRN Reason: Keep Vein Open Discontinued Medications Hydrocodone Bitart/Acetaminophen ([place] 325-5 Mg) 1 - 2 tab PO Q6H PRN PRN Reason: Pain Last Admin: 03/31/18 13:03 Dose: 2 tab Fentanyl (Sublimaze) 50 mcg IM ONETIME ONE Stop: 03/29/18 22:55 Last Admin: 03/29/18 23:03 Dose: 50 mcg Fentanyl (Sublimaze) 25 mcg IVPUSH Q2H PRN PRN Reason: Pain (severe 7-10) Last Admin: 03/30/18 12:01 Dose: 25 mcg Furosemide (Lasix) 20 mg PO DAILY [facility] Last Admin: 03/30/18 08:19 Dose: 20 mg Magnesium Hydroxide (Milk Of Magnesia) 30 ml PO ONETIME ONE Stop: 03/30/18 09:01 Last Admin: 03/30/18 08:19 Dose: 30 ml Psyllium Husk (Metamucil Sugar Free) 1 packet PO DAILY PRN PRN Reason: CONSTIPATION Last Admin: 03/31/18 09:05 Dose: 1 packet - Exam General: Alert, Oriented, Cooperative, Mild Distress Lungs: Clear to Auscultation, Normal Respiratory Effort Cardiovascular: Regular Rate, Regular Rhythm, No Murmurs GI/Abdominal Exam: Soft, Non-Tender, No Organomegaly, No Distention Extremities: Non-Tender, No Pedal Edema - Problem List Review Problem List Initiated/Reviewed/Updated: Yes - My Orders Last 24 Hours: My Active Orders 03/31/18 21:00 Dorzolamide [Trusopt 2% Ophth Soln] See Dose Instructions EYELF BID - Plan Plan:: ASSESSMENT AND PLAN SACRAL FRACTURES-cause of current severe lower back pain -Pain medication as needed CONSTIPATION-improved with current management MAINTENANCE ISSUES -DVT prophylaxis; SCUDs -GI prophylaxis; not indicated -Drummond catheter; not indicated -Nutrition; regular diet -Nicotine dependence; not required CODE STATUS-DNR/DNI ADMISSION STATUS-patient will be admitted to inpatient status, expect at least a 2 night hospital stay for evaluation and management of problems as outlined above. At the time of this admission I do not reasonably expected evaluation and management of this problem will require more than a 96 hour hospital stay. DISPOSITION-anticipate discharge to residential PRIMARY CARE PROVIDER-
[2018-04-01] MEDS: Melatonin 3 MG Tab PO PRN (23:28)
[2018-04-02] MEDS: Acetaminophen/HYDROcodone 325-5 MG Tab PO PRN ×3 (03:34→10:11)
[2018-04-02] MEDS: Pantoprazole 40 MG Tab.CR PO SCH (07:14)
[2018-04-02] MEDS: Levothyroxine 50 MCG Tab PO SCH (07:14)
[2018-04-02 07:48] VITALS: BP 165/45
[2018-04-02] MEDS: Aspirin 325 MG Tab.EC PO SCH (09:04)
[2018-04-02] MEDS: Sertraline 25 MG Tab PO SCH (09:04)
[2018-04-02] MEDS: Dorzolamide 2% Ophth Soln 10 ML Bottle EYELF SCH (09:05)
[2018-04-02] MEDS: prednisoLONE Acetate 1% Ophth Susp 5 ML Bottle EYERT SCH (09:05)
[2018-04-02] MEDS: Meclizine 25 MG Tab PO SCH (09:10)
--- NOTE | 2018-04-02 11:17 | PCM.DCSUM1 ---
Discharge Summary - Hospital Course Brief History: Ms. Walsh is an 88-year-old woman who was admitted through the emergency department with severe pelvic pain secondary to sacral fractures. - Discharge Data Discharge Date: 04/02/18 Discharge Disposition: DC/Tfer to SNF 03 Condition: Fair - Discharge Diagnosis/Problem(s) (1) Sacral fracture, closed SNOMED Code(s): 365900444 ICD Code: S32.10XA - UNSP FRACTURE OF SACRUM, INIT ENCNTR FOR CLOSED FRACTURE Status: Acute Current Visit: Yes Qualifiers: Encounter type: initial encounter Zone of sacrum fracture: unspecified portion of sacrum Qualified Code(s): S32.10XA - Unspecified fracture of sacrum , initial encounter for closed fracture (2) History of - hypertension, HTN, High Blood Pressure SNOMED Code(s): 772115103 ICD Code: Z86.79 - PERSONAL HISTORY OF OTHER DISEASES OF THE CIRCULATORY SYSTEM Status: Chronic Current Visit: No (3) Chronic kidney disease (CKD), stage III (moderate) SNOMED Code(s): 340450822 ICD Code: N18.3 - CHRONIC KIDNEY DISEASE, STAGE 3 (MODERATE) Status: Chronic Current Visit: No - Patient Summary/Data Consults: Consultations 03/30/18 07:36 Consult to Physical Therapy [PT Evaluation and Treatment] [CONS] Routine Please Evaluate and Treat. PT Reason for Consult: Other (Type Response) Pending Discharge: saccral fractures after fall. weakness This query below is only for informational purposes and is not editable. Admission Diagnosis/Problem: Sacral back pain Hospital Course: Ms. Walsh is an 88-year-old woman who was admitted through the emergency department with severe lower back pelvic pain secondary to sacral fractures. She had fallen about 2 weeks prior to admission and noted pain in her lower back and sacral region. She was still able to function fairly well, but about 2 days prior to admission she twisted and noted onset of severe pain in the sacral region. She had marked difficulty with ambulation and transfers so she presented to the emergency department for further evaluation. CT scan of the pelvis did document sacral fractures is the likely underlying cause of her pain. On admission she was given fluids for hydration and pain medication as needed. Daily physical therapy was ordered and over the course of her hospital stay she gradually improved but was not moving safely enough for discharge to home. She was kept in the hospital until a safe discharge plan could be accomplished any assisted bed was available. She will be discharged to the assisted for daily physical therapy and occupational therapy. Activity will be as tolerated and she will resume her usual diet. - Patient Instructions Diet: Heart Healthy Diet Activity: As Tolerated Other/Special Instructions: Daily physical therapy and occupational therapy while at the assisted. - Discharge Plan *PRESCRIPTION DRUG MONITORING PROGRAM REVIEWED*: Not Applicable *COPY OF PRESCRIPTION DRUG MONITORING REPORT IN PATIENT TYLER: Not Applicable Prescriptions/Med Rec: Acetaminophen/HYDROcodone [[place] 325-5 MG] 1 tab PO Q4H PRN #30 tablet PRN Reason: Pain Home Medications: Home Meds Levothyroxine 50 mcg PO ACBRK 08/13/13 [History] Lovastatin 20 mg PO DAILY 08/13/13 [History] Meclizine [Antivert] 12.5 mg PO DAILY 08/13/13 [History] Omeprazole 20 mg PO DAILY 08/13/13 [History] prednisoLONE Acetate [Prednisolone Acetate] 1 drop EYERT DAILY 08/13/13 [History ] Naproxen Sodium 220 mg PO DAILY 06/06/15 [History] Nitroglycerin [Nitrostat] 0.4 mg PO ASDIRECTED PRN 06/06/15 [History] Psyllium [Metamucil] 1 cap PO DAILY PRN 06/06/15 [History] Vitamin E 400 unit PO DAILY 06/06/15 [History] Niacin 250 mg PO DAILY 05/21/16 [History] Aspirin [Ecotrin] 325 mg PO DAILY 03/29/18 [History] Furosemide 1 tab PO DAILY 03/29/18 [History] Sertraline HCl 1 tab PO DAILY 03/29/18 [History] Dorzolamide HCl/Pf [Dorzolamide 2% Eye Drop] 1 drop EYELF BID 03/31/18 [History] Sodium Chloride 5% [[place] 128 5% Ophth Soln] 15 ml EYERT QID 03/31/18 [History] Acetaminophen/HYDROcodone [[place] 325-5 MG] 1 tab PO Q4H PRN #30 tablet 04/02/18 [Rx] Referrals: PCP,None [Primary Care Provider] - - Discharge Summary/Plan Comment DC Time >30 min.: No - Patient Data Vitals - Most Recent: Last Vital Signs Temp 97.4 F 04/02/18 07:45 Pulse 68 04/02/18 07:45 Resp 18 04/02/18 07:45 BP 165/45 H 04/02/18 07:45 Pulse Ox 98 04/02/18 07:45 Orthostatic Blood Pressure [ 90/47 Standing] Orthostatic Blood Pressure [ 127/71 Sitting] Weight - Most Recent: 132 lb 14.385 oz I&O - Last 24 hours: Intake & Output 04/01/18 04/02/18 04/02/18 22:59 06:59 14:59 Intake Total 900 Output Total 300 Balance 600 Med Orders - Current: Current Medications Hydrocodone Bitart/Acetaminophen ([place] 325-5 Mg) 1 - 2 tab PO Q4H PRN PRN Reason: Pain Last Admin: 04/02/18 07:57 Dose: 2 tab Aspirin (Ecotrin) 325 mg PO DAILY [facility] Last Admin: 04/02/18 09:04 Dose: 325 mg Dorzolamide HCl (Trusopt 2% Ophth Soln) 0 ml EYELF BID [facility] Last Admin: 04/02/18 09:05 Dose: 1 drop Levothyroxine Sodium (Synthroid) 50 mcg PO ACBRK [facility] Last Admin: 04/02/18 07:14 Dose: 50 mcg Lovastatin (Mevacor) 20 mg PO DAILY [facility] Last Admin: 04/02/18 09:06 Dose: 20 mg Meclizine HCl (Antivert) 12.5 mg PO DAILY [facility] Last Admin: 04/02/18 09:10 Dose: 12.5 mg Melatonin (Melatonin) 9 mg PO BEDTIME PRN PRN Reason: Insomnia Last Admin: 04/01/18 23:28 Dose: 9 mg Nitroglycerin (Nitrostat) 0.4 mg SL ASDIRECTED PRN PRN Reason: Chest Pain Pantoprazole Sodium (Protonix) 40 mg PO ACBREAKFAST [facility] Last Admin: 04/02/18 07:14 Dose: 40 mg Prednisolone Acetate (Pred Forte 1% Ophth Susp) 0 ml EYERT DAILY [facility] Last Admin: 04/02/18 09:05 Dose: 1 drop Psyllium Husk (Metamucil Sugar Free) 1 pkt PO DAILY PRN PRN Reason: CONSTIPATION Last Admin: 04/01/18 15:26 Dose: 1 pkt Sertraline HCl (Zoloft) 25 mg PO DAILY [facility] Last Admin: 04/02/18 09:04 Dose: 25 mg Sodium Chloride (Saline Flush) 10 ml FLUSH ASDIRECTED PRN PRN Reason: Keep Vein Open Discontinued Medications Hydrocodone Bitart/Acetaminophen ([place] 325-5 Mg) 1 - 2 tab PO Q6H PRN PRN Reason: Pain Last Admin: 03/31/18 13:03 Dose: 2 tab Fentanyl (Sublimaze) 50 mcg IM ONETIME ONE Stop: 03/29/18 22:55 Last Admin: 03/29/18 23:03 Dose: 50 mcg Fentanyl (Sublimaze) 25 mcg IVPUSH Q2H PRN PRN Reason: Pain (severe 7-10) Last Admin: 03/30/18 12:01 Dose: 25 mcg Furosemide (Lasix) 20 mg PO DAILY [facility] Last Admin: 03/30/18 08:19 Dose: 20 mg Magnesium Hydroxide (Milk Of Magnesia) 30 ml PO ONETIME ONE Stop: 03/30/18 09:01 Last Admin: 03/30/18 08:19 Dose: 30 ml Psyllium Husk (Metamucil Sugar Free) 1 packet PO DAILY PRN PRN Reason: CONSTIPATION Last Admin: 03/31/18 09:05 Dose: 1 packet - Exam General: Reports: Alert, Oriented, Cooperative, Mild Distress Lungs: Reports: Clear to Auscultation, Normal Respiratory Effort Cardiovascular: Reports: Regular Rate, Regular Rhythm, No Murmurs GI/Abdominal Exam: Soft, Non-Tender, No Organomegaly, No Distention
== END 2018-04-02 11:51 | DRG 552 ==
LOC: JP.ED 22:14 → JP.MS 03-30 00:17
PROVIDERS: ADMIT Family Medicine; ATTEND Hospitalist
DX: S32.10XA Unspecified fracture of sacrum, initial encounter for closed fracture (principal); Z66 Do not resuscitate; X50.1XXA Overexertion from prolonged static or awkward postures, initial encounter; Y92.009 Unspecified place in unspecified non-institutional (private) residence as the place of occurrence of the external cause; I12.9 Hypertensive chronic kidney disease with stage 1 through stage 4 chronic kidney disease, or unspecified chronic kidney disease; N18.3 Chronic kidney disease, stage 3 (moderate); E03.9 Hypothyroidism, unspecified; Z86.73 Personal history of transient ischemic attack (TIA), and cerebral infarction without residual deficits; M54.5 Low back pain; R01.1 Cardiac murmur, unspecified; H40.9 Unspecified glaucoma; E78.5 Hyperlipidemia, unspecified; K59.09 Other constipation; M54.9 Dorsalgia, unspecified; G89.29 Other chronic pain; Z85.41 Personal history of malignant neoplasm of cervix uteri; Z94.7 Corneal transplant status; K21.9 Gastro-esophageal reflux disease without esophagitis; F41.9 Anxiety disorder, unspecified; F32.9 Major depressive disorder, single episode, unspecified; M19.90 Unspecified osteoarthritis, unspecified site; H54.7 Unspecified visual loss
CPT/HCPCS: 72192; 96372; 99285; J3010; 97162-GP; 97530-GP; 97535-GP; A9270-GY

== ENCOUNTER 2018-10-01 14:05 | Emergency (ER) | payer MEDICARE, OTHER, MEDICAID ==
[2018-10-01 15:09] VITALS: BP 135/63
--- NOTE | 2018-10-01 15:55 | EDM.PDOC ---
ED HPI GENERAL MEDICAL PROBLEM - General Chief Complaint: Cardiovascular Problem Stated Complaint: HIGH BLOOD PRESURE Time Seen by Provider: 10/01/18 15:20 Source of Information: Reports: Patient History Limitations: Reports: No Limitations - History of Present Illness INITIAL COMMENTS - FREE TEXT/NARRATIVE: This lady comes in for blood pressure problems. She said her blood pressure at home was over 200. She felt anxious. She denies missing any medications. She is not having any type of neurologic or cardiac problems. - Related Data Allergies Allergy/AdvReac Type Severity Reaction Status Date / Time No Known Allergies Allergy Verified 10/01/18 14:18 Home Meds: Home Meds Levothyroxine 50 mcg PO ACBRK 08/13/13 [History] Lovastatin 20 mg PO DAILY 08/13/13 [History] Meclizine [Antivert] 12.5 mg PO DAILY 08/13/13 [History] Omeprazole 20 mg PO DAILY 08/13/13 [History] prednisoLONE Acetate [Prednisolone Acetate] 1 drop EYERT DAILY 08/13/13 [History ] Naproxen Sodium 220 mg PO DAILY 06/06/15 [History] Nitroglycerin [Nitrostat] 0.4 mg PO ASDIRECTED PRN 06/06/15 [History] Psyllium [Metamucil] 1 cap PO DAILY PRN 06/06/15 [History] Vitamin E 400 unit PO DAILY 06/06/15 [History] Niacin 250 mg PO DAILY 05/21/16 [History] Aspirin [Ecotrin] 325 mg PO DAILY 03/29/18 [History] Furosemide 1 tab PO DAILY 03/29/18 [History] Sertraline HCl 1 tab PO DAILY 03/29/18 [History] Dorzolamide HCl/Pf [Dorzolamide 2% Eye Drop] 1 drop EYELF BID 03/31/18 [History] Sodium Chloride 5% [[place] 128 5% Ophth Soln] 15 ml EYERT QID 03/31/18 [History] Past Medical History HEENT History: Reports: Cataract, Glaucoma, Impaired Vision Cardiovascular History: Reports: High Cholesterol, Hypertension, Other (See Below) Other Cardiovascular History: "heart palpitations" Gastrointestinal History: Reports: Chronic Constipation, GERD, Hemorrhoids Genitourinary History: Reports: Chronic Renal Insuffiency, Other (See Below) Other Genitourinary History: stage 3 [employer] History: Reports: Musculoskeletal History: Reports: Back Pain, Chronic, Osteoarthritis, Osteoporosis Neurological History: Reports: Headaches, Chronic, TIA, Other (See Below) Other Neuro History: cognitive impairment Psychiatric History: Reports: Anxiety, Depression, Panic Attack Endocrine/Metabolic History: Reports: Hypothyroidism, Other (See Below) Other Endocrine/Metabolic History: thyroid Hematologic History: Reports: Blood Transfusion(s) Oncologic (Cancer) History: Reports: Cervix Dermatologic History: Reports: Other (See Below) Other Dermatologic History: "dry, itching patch to chest" - Infectious Disease History Infectious Disease History: Reports: Chicken Pox, Measles, Mumps, Shingles - Past Surgical History Head Surgeries/Procedures: Reports: Shunt HEENT Surgical History: Reports: Cataract Surgery, Eye Surgery, Tonsillectomy, Other (See Below) Other HEENT Surgeries/Procedures: stents in eyes, corneal transport Cardiovascular Surgical History: Reports: None GI Surgical History: Reports: Appendectomy, Colonoscopy Female Surgical History: Reports: D&C, Hysterectomy, Other (See Below) Other Female Surgeries/Procedures: bladder surgery Endocrine Surgical History: Reports: None Neurological Surgical History: Reports: None Musculoskeletal Surgical History: Reports: None Oncologic Surgical History: Reports: None Dermatological Surgical History: Reports: None Social & Family History - Family History Family Medical History: Noncontributory - Tobacco Use Smoking Status *Q: Never Smoker Second Hand Smoke Exposure: No - Caffeine Use Caffeine Use: Reports: None - Recreational Drug Use Recreational Drug Use: No ED ROS GENERAL - Review of Systems Review Of Systems: ROS reveals no pertinent complaints other than HPI. ED EXAM, GENERAL - Physical Exam Exam: See Below Exam Limited By: No Limitations General Appearance: Alert, WD/WN, No Apparent Distress Eye Exam: Bilateral Eye: Normal Inspection Head: Atraumatic Neck: Normal Inspection Respiratory/Chest: Lungs Clear Cardiovascular: Regular Rate, Rhythm, No Murmur Neurological: Alert, Oriented Psychiatric: Normal Affect Skin Exam: Warm, Dry Course - Vital Signs Last Recorded V/S: Last Vital Signs Temp 36.2 C 10/01/18 14:25 Pulse 60 10/01/18 15:00 Resp 16 10/01/18 15:00 BP 135/63 10/01/18 15:00 Pulse Ox 93 L 10/01/18 15:00 Departure - Departure Time of Disposition: 15:53 Disposition: Home, Self-Care 01 Condition: Fair Clinical Impression: Hypertension, uncontrolled Instructions: How to Take Your Blood Pressure, [id number] Referrals: Pita Kendall PA [Primary Care Provider] - Forms: ED Department Discharge Additional Instructions: Your blood pressure looks okay now. It looks like there are times during the day when it may be going out of control. Therefore you should check your blood pressure several times per day and record this in a notebook. Plan to see your Dr. in 2 or 3 days to discuss the blood pressure control. Return to the ER at any time if needed
== END 2018-10-01 15:58 | disposition home or self-care (01) ==
LOC: JP.ED 14:05
DX: I10 Essential (primary) hypertension (principal); Z79.899 Other long term (current) drug therapy; Z79.82 Long term (current) use of aspirin
CPT/HCPCS: 99283